=== PATIENT | female | born 1955 | race Caucasian/White ===

== ENCOUNTER 2024-09-09 02:27 | Emergency (ER) | payer MEDICARE, SELFPAY ==
[2024-09-09 02:32] VITALS: BP 103/75; PULSE 74; RESP 16; O2SAT 90; BMI 48.8
--- OUTSIDE RECORDS SUMMARY | 2024-09-09 02:49 | XMS_ITS | Encounter Summary ---
Author Organization [facility] Address [address] [place] [address] Care Team Providers Care Sausage Mixer Name Role Phone Gamal Larson MD Primary Care Provider [phone] Janine Wolff MD Primary Care Provider Reason for Referral * Home Care Services (Urgent) - Closed Specialty Diagnoses / Procedures Referred By Contac t Referred To Contact Home Health Services Diagnoses Bilateral low back pain, unspecified chronicity, unspecified whether sciatica present S/P lumbar fusion Impaired mobility Procedures OFFICE OR OTHER OUTPT VISIT EST PT 20 TO 29 MINS LOW MDM LVL 3 Vish Boyd MD [address] [place] [address] Phone: tel: [facility] [address] [place] [address] Phone: tel: fax: Referral ID Status Reason Start Date Expiration Date Visits Re quested Visits Authorized [id number] Closed 06/15/2020 06/15/2021 99 99 Question Answer Patient Preference [place] - [facility] [2] Home care service needed Home Health [1] Select home health services needed Physical therapy Physical therapy needs Eval and Treat Provider to follow patients home care VISH BOYD [[id number]] Reason for home bound status (please select all that apply) High risk for infection, Other, Requires aid of supportive device(s) Supportive device(s) needed Other Other supportive device(s) needed BRACE Reason for infection risk Post-surgical procedure Other reason for homebound status UNABLE TO DRIVE , TAKING NARCOTIC MEDICATION Has a face to face encounter been completed? Yes Face to Face encounter completed on 06/09/2020 Certification of Face to Face I certify this patient had a Face to Face encounter performed on the date specified above by a physician or Medicare allowed non-physician practitioner, related to the primary reason the patient requires home health services. Certification of Home Bound Status I certify, based on my clinical findings, this patient is confined to his/her home due to the homebound reason(s) identified. Leaving the home is a significant and challenging effort for the patient. Encounter Details Date Type Department Care Team (Latest Contact Info) Description 06/15/2020 Transcribe Orders [facility] [address] [address] Vish Boyd MD [address] [place], [place] [address]ab[place] [address] Bilateral low back pain, unspecified chronicity, unspecified whether sciatica present (Primary Dx); S/P lumbar fusion; Impaired mobility Social History Tobacco Use Types Packs/Day Years Used Date Smoking Tobacco: Former Smokeless Tobacco: Never Alcohol Use Standard Drinks/Week Comments Yes 0 (1 standard drink = 0.6 oz pur e alcohol) PHQ-2 Answer Date Recorded PHQ-2 Score 0 03/01/2020 Exercise Vital Sign Answer Date Recorde d On average, how many days pe r week do you engage in moderate to strenuous exercise (like a brisk walk)? 0 days 03/01/2020 On average, how many minutes do you engage in exercise at this level? 0 min 03/01/2020 Stress Answer Date Recorded How Stressed Not on file 06/17/2020 Inadequate Housing Answer Date Recorded Social Determinants: Housing (Overall Score Help er) 0 02/28/2019 Sexually Active Control Partners Comments Yes Comments Unknown Sex and Gender Information Value Date Recorded Sex Assigned at Female 02/20/2020 9:37 AM IT OPERATIONS ANALYST Legal Sex Female 1:17 PM IT OPERATIONS ANALYST Gender Identity Female 02/20/2020 9:37 AM IT OPERATIONS ANALYST Sexual Orientation Choose not to disclose 2019 9:37 AM IT OPERATIONS ANALYST documented as of this encounter Plan of Treatment Scheduled Referrals Name Type Priority Associated Diagnoses Orde r Schedule SERVICE TO HOME CARE OR HOSPICE Referral Routine Bilateral low back pain, unspecified chronicity, unspecified whether sciatica present S/P lumbar fusion Impaired mobility Ordered: 06/15/2020 documented as of this encounter Visit Diagnoses Diagnosis Bilateral low back pain, unspecified chronicity, unspecified whether sciatica present- Primary S/P lumbar fusion Arthrodesis status Impaired mobility Other ill-defined conditions documented in this encounter Additional Health Concerns Assessment Noted Time PHQ-9 Depression Total Score: 4 03/01/20 20 11:21 AM IT OPERATIONS ANALYST documented as of this encounter Care Teams Sausage Mixer Relationship Specialty Start Date End Date Gamal Larson MD PCP - General Family Practice 03/01/20 11/23/20 Janine Wolff MD PCP - General 11/24/20 documented as of this encounter
--- OUTSIDE RECORDS SUMMARY | 2024-09-09 02:49 | XMS_ITS | Clinical Summary ---
Author Organization [facility] Address [address] [place] [address] Care Team Providers Care Document Processor Name Role Phone Janine Wolff MD Primary Care Provider Allergies No known active allergies Medications * This document contains information received from the source organization and may not represent a complete record from that organization. Black Pepper-Turmeric (Turmeric Complex/Black Pepper) 3-500 MG Cap 03/01/2020 Active aspirin (ECOTRIN) 81 MG EC tablet 03/01/2020 Active calcium carbonate-vitam in D (CALTRATE+D) 600-400 MG-UNIT per tablet 02/23/2020 Active cetirizine (ZyrTEC) 10 MG tablet 03/01/2020 Active Cranberry 500 MG Tab 03/01/2020 Active Cyanocobalamin (Vitamin B-12) 2500 MCG SL Tab 03/01/2020 Act liliana cyclobenzaprine (FLEXERIL) 10 MG tablet 02/25/2020 Active Multiple Vitamins-Minera ls (Multivitamin Gummies Adult) Chew Tab 02/23/2020 Active gabapentin (NEURONTIN) 800 MG tablet Take 800 mg by mouth. 04/10/2019 Active lidocaine (LIDODERM) 5 % patch Place 1 patch onto the skin. 01/05/2020 Active Magnesium 300 MG Cap Take 1 capsule by mouth. 02/16/2018 Active simvastatin (ZOCOR) 20 MG tablet TAKE 1 TABLET EVERY EVENING BEFORE DINNER 10/01/2019 Active FERROUS FUMARATE PO Take 2 tablets by mouth daily. Active B Complex Vitamins (VITAMIN-B COMPLEX PO) Take 1 tablet by mouth daily. Active Multiple Vitamins-Minera ls (MULTIVITAMIN ADULT PO) Take 1 tablet by mouth daily. Active NON FORMULARY Take 2 tablets by mouth daily. LUTEIN EXTRACT/ZEAX ANTHIN EXT (LUTEIN-ZEAX ANTHIN ORAL) Active Ascorbic Acid (Vitamin C) 500 MG Cap Take 500 mg by mouth daily. Active Cholecalciferol (Vitamin D3) 50 mcg (2,000 units) capsule Take 2,000 Units by mouth. 01/02/2013 Active fluoxetine (PROzac) 40 MG capsule Take 40 mg by mouth. 10/01/2019 Active naproxen sodium (ALEVE) 220 MG tablet Take 440 mg by mouth nightly as needed. Active zolpidem (AMBIEN) 10 MG tablet Take 1 tablet by mouth nightly as needed for Sleep. 30 tablet 2 03/01/2020 Active HYDROcodone-anna marie taminophen (NORCO) 10-325 MG per tablet Take 1 tablet by mouth every 4 hours as needed for Pain. 06/03/2020 Active cephalexin 500 MG tablet Take 500 tablets by mouth 2 times daily. 06/13/2020 Active Active Problems Problem Noted Date Diagnosed Date AAT (nromm-2-qpthlpfqpad) deficiency (CMD) 03/01 Hyperlipidemia 03/01/2020 Obesity 03/01/2020 Obstructive sleep apnea syndrome, moderate 03/01 Anxiety 03/01/2020 Allergic rhinitis 03/01/2020 Overview (03/01/2020): Diagnosis die finisher utility for ICD-10 conversion FEDERICO on CPAP 03/01/2020 Insomnia 02/23/2020 Degenerative lumbar disc 12/30/2019 Overview (03/01/2020): Added automatically from request for surgery [id number] Lumbar disc herniation 12/30/2019 Overview (03/01/2020): Added automatically from request for surgery [id number] Cervical stenosis (uterine cervix) 10/14/2019 Difficult airway 10/14/2019 Stenosis of intervertebral foramina 09/11/2019 Overview (03/01/2020): Added automatically from request for surgery [id number] Added automatically from request for surgery [id number] SOLANGE (generalized anxiety disorder) 12/27/2018 Degenerative scoliosis in adult patient 08/16/19 18 Overview (03/01/2020): Added automatically from request for surgery [id number] Osteoarthritis of spine with radiculopathy, lumb ar region 08/15/2017 Overview (03/01/2020): Added automatically from request for surgery [id number] FHx: alpha 1 antitrypsin deficiency 09/12/2016 Epilepsy, partial (CMS/HCC), 201408/31/2016 Complex partial seizure (CMD) 12/26/2014 Iron deficiency 01/18/2010 Status post gastric bypass for obesity 0 Lumbar radiculopathy, chronic 10/04/2007 Unilateral deafness, left 05/03/2006 Immunizations Immunization Administration Dates Next Due School Yourself 12Y+ (Requires Dilution) 12/28/2020 ,04/13/2020,02/23/2020 Hep B, Unspecified Formulation 12/19/2007,2007,06/20/2007 Hep B, adult 12/19/2007,07/19/2007,06/20/2007 Influenza, split 11/20/2012, 2,11/29/2010,2007 Influenza, split virus, quad rivalent, PF 11/24/2020,12/17/2019,12/16/2019,2018,12/18/2016,11/30/2015,12/19/2014,0 11/14/2013 Influenza, split virus, trivalent 11/14/2013 Influenza, unspecified formulation 12/28,12/18/2017,12/18/2016,2015,12/19/2014,11/14/2013 Td (adult), 5 Lf tetanus tox oid, preserve free, adsorbed 10/28/2019 Tdap 03/05/2009 Zoster recombinant 03/01/2020,10/28/2019 Surgical History Surgery Date Site/Laterality Comments AMANUEL EN Y GASTROJEJUNOSTOMY Medical History Medical History Date Comments History of Amanuel-en-Y gastric bypass Family History Medical History Relation Comments COPD Father alpha 1 antitryp sin def Relation Status Comments Father Social History Tobacco Use Types Packs/Day Years [...] Sex Assigned at Female 02/20/2020 9:37 AM RN ENTEROSTOMAL Legal Sex Female 1:17 PM RN ENTEROSTOMAL Gender Identity Female 02/20/2020 9:37 AM RN ENTEROSTOMAL Sexual Orientation Choose not to disclose 2019 9:37 AM RN ENTEROSTOMAL Obstetrics History Last Filed Vital Signs Vital Sign Reading Time Taken Comments Blood Pressure 106/69 07/07/2020 2:45 AM CDT Pulse 84 07/07/2020 2:45 AM CDT Temperature 36.8 C (98.3 F) 11/24/2020 11:34 AM CDT Respiratory Rate 18 07/07/2020 2:45 AM CDT Oxygen Saturation 97% 07/07/2020 2:45 AM CDT Inhaled Oxygen Concentration - - Weight 104.3 kg (230 lb) 03/01/2020 11:23 AM RN ENTEROSTOMAL Height 154.9 cm (5' 1 ) 03/01/2020 11:23 AM RN ENTEROSTOMAL Body Mass Index 43.46 03/01/2020 11:23 AM RN ENTEROSTOMAL Plan of Treatment Health Maintenance Due Date Last Done Comments Depression Screening 1968 CT Colonography 2001 Cologuard 2001 Fecal Occult Blood 2001 Sigmoidoscopy 2001 Pneumococcal Vaccine 50+ (1 of 1 - PCV) 2006 COVID-19 Vaccine ( season) 2023 12/28/2020, 04/13/2020, 02/23/2020 Influenza Vaccine (#1) 2024 1, 12/17/2019, 12/16/2019, Additional history exists Colonoscopy 11/20/2024 11/20/2014 Colorectal Cancer Screening 11/20/2024 DTaP/Tdap/Td Vaccine (3 - Td or Tdap) 10/27/2029 10/28/2019, 03/05/2009 Respiratory Syncytial Virus (RSV) Vaccine 60+ (1 - 1-dose 75+ series) 10/21/2031 Hepatitis B Vaccine (For Physician/APC Discussion) Completed 12/19/2007, 12/19/2007, 07/19/2007, Additional history exists Breast Cancer Screening Discontinued 07/02/2018 Osteoporosis Screening Completed 07/03/2018 Shingles Vaccine Completed 03/01/2020, 10/28/2019 HPV Vaccine Aged Out No longer eligi ble based on patient's age to complete this topic Hepatitis A Vaccine Aged Out No longe r eligible based on patient's age to complete this topic Meningococcal Serogroup B Vaccine Aged Out No longer eligible based on patient's age to complete this topic Meningococcal Vaccine Aged Out No guerrero kaye eligible based on patient's age to complete this topic Procedures Procedure Name Priority Date/Time Associated Diagnosis Comments BD DEXA AXIAL SKELETON Routine 07/03/2018 MAMMO SCREENING BILATERAL Routine 07/02/2018 COLONOSCOPY DIAGNOSTIC Routine 11/20/2014 from Last 3 Months or Most Recently Relevant to Health Maintenance Results * BD DEXA SCAN AXIAL SKELETON (07/03/2018) [facility] DEXA SCAN Normal Comment:in my chart Anatomical Region Laterality Modality Bone Density Radiographic Corinne ging us Ext Result Console IMG DXA PROCEDURES Final Resu lt * MAMMO SCREENING BILATERAL (07/02/2018) [facility] MAMMOGRAPHY BILATERAL Normal Comment:in My chart Anatomical Region Laterality Modality Breast Bilateral Mammography us Ext Result Console IMG BI PROCEDURES Final Resul t * COLONOSCOPY DIAGNOSTIC (11/20/2014) [facility] COLONOSCOPY Normal Comment:under my chart us Ext Result Console SURGERY & PROCEDURES Final Re sult from Last 3 Months or Most Recently Relevant to Health Maintenance Care Teams Document Processor Relationship Specialty Start Date End Date Janine Wolff MD PCP - General 11/24/20
--- OUTSIDE RECORDS SUMMARY | 2024-09-09 02:49 | XMS_ITS | Encounter Summary ---
Author Organization [facility] Address [address] [place] [address] Care Team Providers Care Fund Controller Name Role Phone Janine Wolff MD Primary Care Provider Encounter Details Date Type Department Care Team ([facility] Contact Info) Description 05/19/2021 E-Advice [facility] [address] [place] [address] PAYMILL, Patient Portal Questionnaire Submission Social History Tobacco Use Types Packs/Day Years [...] Sex Assigned at Female 02/20/2020 9:37 AM FLEET MECHANIC Legal Sex Female 1:17 PM FLEET MECHANIC Gender Identity Female 02/20/2020 9:37 AM FLEET MECHANIC Sexual Orientation Choose not to disclose 2019 9:37 AM FLEET MECHANIC documented as of this encounter Plan of Treatment Not on file documented as of this encounter Visit Diagnoses Not on filedocumented in this encounter Additional Health Concerns Assessment Noted Time PHQ-9 Depression Total Score: 4 03/01/20 20 11:21 AM FLEET MECHANIC documented as of this encounter Care Teams Fund Controller Relationship Specialty Start Date End Date Janine Wolff MD PCP - General 11/24/20 documented as of this encounter
--- OUTSIDE RECORDS SUMMARY | 2024-09-09 02:49 | XMS_ITS | Encounter Summary ---
Author Organization [facility] Address [address] [place] [address] Care Team Providers Care Milk Pickup Driver Name Role Phone Gamal Larson MD Primary Care Provider [phone] Janine Wolff MD Primary Care Provider Reason for Referral * Consult & Treatment (Routine) - Closed Specialty Diagnoses / Procedures Referred By Contac t Referred To Contact Diagnoses Degenerative scoliosis in adult patient Degenerative lumbar disc Osteoarthritis of spine with radiculopathy, lumbar region Low back pain, unspecified back pain laterality, unspecified chronicity, unspecified whether sciatica present Procedures OFFICE OR OTHER OUTPT VISIT EST PT 20 TO 29 MINS LOW MDM LVL 3 Gamal Larson MD Phone: tel: fax: Onofre Rowley MD Phone: tel: fax: Referral ID Status Reason Start Date Expiration Date Visits Re quested Visits Authorized [id number] Closed 03/08/2020 03/08/2021 1 1 Question Answer service Transfer of Care Comments Chronic lower back pain. Needs new neurosurgeon. F OF STAFF DOCTOR Encounter Details Date Type Department Care Team (Late st Contact Info) Description 03/08/2020 E-Adv[facility] [address] [address] Gamal Larson MD [address] [place] [address] RE: Non-Urgent Medical Question Social History Tobacco Use Types Packs/Day Years [...] exercise at this level? 0 min 03/01/2020 Inadequate Housing Answer Date Recorded Social Determinants: Housing (Overall Score Help er) 0 02/28/2019 Sexually Active Control Partners Comments Yes Comments Unknown Sex and Gender Information Value Date Recorded Sex Assigned at Female 02/20/2020 9:37 AM CHIEF OF STAFF DOCTOR Legal Sex Female 1:17 PM CHIEF OF STAFF DOCTOR Gender Identity Female 02/20/2020 9:37 AM CHIEF OF STAFF DOCTOR Sexual Orientation Choose not to disclose 2019 9:37 AM CHIEF OF STAFF DOCTOR documented as of this encounter Miscellaneous Notes * Telephone Encounter - Gamal Larson MD - 03/08/2020 12:22 PM CSTFrom: Zaynab Arteaga To: Gamal Larson Sent: 03/08/2020 12:00 PM CHIEF OF STAFF DOCTOR Subject: Non-Urgent Medical Question We had spoken about a referral to an [facility] for my lumbar spine issues. The doctor I found and would like to see is Onofre Rowley. ThanksZaynab F OF STAFF DOCTOR documented in this encounter Plan of Treatment Scheduled Referrals Name Type Priority Associated Diagnoses Orde r Schedule SERVICE TO NEUROLOGICAL SURGERY Referral Routine Degenerative scoliosis in adult patient Degenerative lumbar disc Osteoarthritis of spine with radiculopathy, lumbar region Low back pain, unspecified back pain laterality, unspecified chronicity, unspecified whether sciatica present Ordered: 03/08/2020 documented as of this encounter Visit Diagnoses Diagnosis Low back pain, unspecified back pain laterality, unspecified chronicity, unspecified whether sciatica present- Primary Degenerative scoliosis in adult patient Degenerative lumbar disc Degeneration of lumbar or lumbosacral intervertebral disc Osteoarthritis of spine with radiculopathy, lumbar region documented in this encounter Additional Health Concerns Assessment Noted Time PHQ-9 Depression Total Score: 4 03/01/20 20 11:21 AM CHIEF OF STAFF DOCTOR documented as of this encounter Care Teams Milk Pickup Driver Relationship Specialty Start Date End Date Gamal Larson MD PCP - General Family Practice 03/01/20 11/23/20 Janine Wolff MD PCP - General 11/24/20 documented as of this encounter
--- NOTE | 2024-09-09 02:58 | CTR_ITS ---
PROCEDURE INFORMATION: Exam: CT Head Without Contrast Exam date and time: 09/09/2024 3:13 AM Age: 68 years old Clinical indication: Injury or trauma; Fall; Blunt trauma (contusions or hematomas); Without loss of consciousness TECHNIQUE: Imaging protocol: Computed tomography of the head without contrast. Radiation optimization: All CT scans at this facility use at least one of these dose optimization techniques: automated exposure control; mA and/or kV adjustment per patient size (includes targeted exams where dose is matched to clinical indication); or iterative reconstruction. COMPARISON: CT facial bones wo con* [id number] 09/09/2024 3:13 AM RADIATION DOSE METRICS: Total DLP (mGy-cm): 1339.4 FINDINGS: Brain: No acute infarction, hemorrhage, mass, or extra-axial fluid collection is identified. No midline shift. Remote lacunar infarction versus dilated perivascular space left basal ganglia. Cerebral ventricles: No hydrocephalus. Paranasal sinuses: Paranasal sinuses are grossly clear. Mastoid air cells: Mastoid air cells are grossly clear. Bones: Calvarium appears intact. Soft tissues: Frontal soft tissue swelling/hematoma. CT/CT head wo con* [id number] IMPRESSION: 1. No acute intracranial abnormality. 2. Frontal soft tissue swelling/hematoma with no underlying fracture.
--- NOTE | 2024-09-09 02:59 | XRR_ITS ---
PROCEDURE INFORMATION: Exam: XR Right Knee Exam date and time: 09/09/2024 3:00 AM Age: 68 years old Clinical indication: Injury or trauma; Fall; Blunt trauma; Knee; Right; Additional info: Fall, swelling TECHNIQUE: Imaging protocol: Radiologic exam of the right knee. Views: 1 or 2 views. COMPARISON: No relevant prior studies available. FINDINGS: Bones/joints: No acute fracture or dislocation. Tricompartmental degenerative osteoarthritis. Small effusion. Soft tissues: Soft tissue swelling anteriorly about the distal thigh and knee. XR/XR knee RT 1-2V [id number] IMPRESSION: Anterior soft tissue swelling with no acute fracture or dislocation identified.
--- NOTE | 2024-09-09 03:12 | CTR_ITS ---
PROCEDURE INFORMATION: Exam: CT Maxillofacial Without Contrast Exam date and time: 09/09/2024 3:13 AM Age: 68 years old Clinical indication: Injury or trauma; Fall; Blunt trauma (contusions or hematomas); Head/scalp and lip/oral cavity; Without loss of consciousness; Not specified; Additional info: Fall, facial lac TECHNIQUE: Imaging protocol: Computed tomography of the face without contrast. Radiation optimization: All CT scans at this facility use at least one of these dose optimization techniques: automated exposure control; mA and/or kV adjustment per patient size (includes targeted exams where dose is matched to clinical indication); or iterative reconstruction. COMPARISON: CT head wo con* [id number] 09/09/2024 3:13 AM RADIATION DOSE METRICS: Total DLP (mGy-cm): 674.8 FINDINGS: Paranasal sinuses: No air-fluid levels. Orbital cavities: Orbits are normal. Globes are unremarkable. Bones: No acute fracture. Soft tissues: Frontal soft tissue swelling/hematoma. CT/CT facial bones wo con* [id number] IMPRESSION: Frontal soft tissue swelling/hematoma with no maxillofacial fracture identified.
--- NOTE | 2024-09-09 03:34 | XRR_ITS ---
PROCEDURE INFORMATION: Exam: XR Chest Exam date and time: 09/09/2024 3:52 AM Age: 68 years old Clinical indication: Injury or trauma; Fall; Bleeding/hemorrhage; Left rib pain; Additional info: Rib pain / fall TECHNIQUE: Imaging protocol: Radiologic exam of the chest. Views: 1 view. COMPARISON: No relevant prior studies available. FINDINGS: Lungs: Mild central vascular congestion is suggested. Questionable minimal left basilar airspace disease, atelectasis versus subtle infiltrate. Pleural spaces: No significant pleural effusion is observed. No pneumothorax. Heart/Mediastinum: Heart size top-normal. Bones/joints: No displaced rib fracture is apparent. XR/XR chest 1V portable [id number] IMPRESSION: No acute findings.
--- NOTE | 2024-09-09 03:34 | W.ED.WOUNDLC ---
HPI - Wound/Laceration General: Chief Complaint: Wound/Laceration Stated Complaint: FALL Time Seen by Provider: 09/09/24 03:21 History of Present Illness: Patient presents following a fall onto cement, resulting in a head laceration. Patient denies loss of consciousness. 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 Patient complains of rib pain. Patient appears to be under the influence of alcohol at the time of examination, though patient states I'm actually pretty sober right now. Patient is uncertain about tetanus vaccination status, stating I don't remember, actually when asked about the date of last tetanus shot. Patient reports having documentation in [employer] ([place] but does not have access to phone at present. Related Data Home Medications ?Medication ?Instructions ?Recorded ?Confirmed gabapentin 800 mg tablet mg 09/09/24 mirtazapine 30 mg tablet mg 09/09/24 simvastatin 20 mg tablet mg 09/09/24 09/09/24 venlafaxine 75 mg tablet mg 09/09/24 09/09/24 Allergies Allergy/AdvReac Type Severity Reaction Status Date / Time No Known Allergies Allergy Verified 09/09/24 02:55 Review of Systems General: Reports: 10 or more systems reviewed and unremarkable except in HPI and below Physical Exam Const: COMMON NORMALS: no acute distress, patient oriented x3, alert and well nourished Neck/C-Spine: COMMON NORMALS: no JVD Resp: COMMON NORMALS: normal respiratory effort, No retractions, No use of accessory muscles, clear to auscultation bilaterally and percussion normal AUSCULTATION: clear to auscultation bilaterally PERCUSSION: percussion normal Cardio: COMMON NORMALS: no JVD GI: COMMON NORMALS: Normal to inspection, nondistended, normoactive bowel sounds present, Soft to palpation, non-tender, No hepatosplenomegaly present, no masses and no bruits PALPATION: Yes Soft to palpation and Yes No hepatosplenomegaly present Extremity: COMMON NORMALS: normal to inspection, full ROM, capillary refill normal, no joint enlargement, no clubbing, cyanosis or edema, no calf tenderness and no pedal edema Neuro: COMMON NORMALS: patient oriented x3 SENSORIUM/ORIENTATION: Yes alert Skin: COMMON NORMALS: no rashes or lesions noted, turgor normal and no jaundice NARRATIVE SKIN EXAM: 7.5 cm laceration to the middle of the forehead with underlying hematoma of moderate size GENERAL SKIN EXAM: no rashes or lesions noted and turgor normal Course Vital Signs: Vital signs: Vital Signs Pulse Rate 75 09/09/24 04:00 Respiratory Rate 16 09/09/24 04:00 Blood Pressure 92/63 09/09/24 04:00 Pulse Oximetry 91 09/09/24 04:00 Oxygen Delivery Me thod Room Air 09/09/24 04:00 MDM - Wound/Laceration Medical Decision Making 1. Head Laceration with Hematoma - Significant laceration requiring repair - Plan to delay repair until patient is more sober - Will likely require sedation for proper cleaning and closure - Awaiting CT scan results to rule out intracranial injury 2. Possible Rib Injury - X-ray ordered to evaluate for fractures - Will reassess after imaging 3. Tetanus Prophylaxis - Tetanus vaccination status uncertain - Will administer tetanus toxoid as prophylaxis 4. Alcohol Intoxication - Will monitor and allow time for sobriety before procedural intervention - Caution with sedation due to current intoxication Lab Data 09/09/24 04:28 09/09/24 04:[address] 09/09/24 02:58 IMPRESSION: 1. No acute intracranial abnormality. 2. Frontal soft tissue swelling/hematoma with no underlying fracture. Knee X-Ray 09/09/24 02:59 IMPRESSION: Anterior soft tissue swelling with no acute fracture or dislocation identified. Face CT 09/09/24 03:12 IMPRESSION: Frontal soft tissue swelling/hematoma with no maxillofacial fracture identified. Chest X-Ray 09/09/24 03:34 IMPRESSION: No acute findings. Laboratory Results WBC 8.23 10^3/uL (3.29-11.43) 09/09/24 04:28 RBC 4.64 10^6/uL (3.85-5.65) 09/09/24 04:28 Hgb 14.30 g/dL (11.27-16.99) 09/09/24 04:28 Hct 43.7 % (36-47) 09/09/24 04:28 MCV 94.2 fl (85-98) 09/09/24 04:28 MCH 30.8 pg (27-33) 09/09/24 04:28 MCHC 32.7 g/dL (30-55) 09/09/24 04:28 RDW 13.2 % (12.1-15.1) 09/09/24 04:28 Plt Count 238 10^3/cmm (157-399) 09/09/24 04:28 MPV 10.3 fL (7.4-10.4) 09/09/24 04:28 Neut % (Auto) 77.3 % 09/09/24 04:28 Lymph % (Auto) 13.1 % 09/09/24 04:28 [place] % (Auto) 7.3 % 09/09/24 04:28 Eos % (Auto) 1.0 % 09/09/24 04:28 Baso % (Auto) 0.9 % 09/09/24 04:28 Neut # (Auto) 6.37 10^3/uL (1.8-7.7) 09/09/24 04:28 Lymph # (Auto) 1.1 10^3/uL (0.8-4.8) 09/09/24 04:28 [place] # (Auto) 0.6 10^3/uL (0.2-0.9) 09/09/24 04:28 Eos # (Auto) 0.1 10^3/uL (0.0-0.8) 09/09/24 04:28 Baso # (Auto) 0.1 10^3/uL (0.0-0.1) 09/09/24 04:28 Nucleated RBC % (auto) 0 % 09/09/24 04:28 Nucleated RBCs # 0.0 /100WBC 09/09/24 04:28 Sodium 141 mmol/L (136-145) 09/09/24 04:28 Potassium 3.6 mmol/L (3.5-5.1) 09/09/24 04:28 Chloride 104 mmol/L (98-107) 09/09/24 04:28 Carbon Dioxide 21 mmol/L (22-29) L 09/09/24 04:28 Anion Gap 19.6 (5-19) H 09/09/24 04:28 BUN 15 mg/dL (8-23) 09/09/24 04:28 Creatinine 0.4 mg/dL (0.5-0.9) L 09/09/24 04:28 GFR Calculation 159.2 mL/min (90-130) H 09/09/24 04:28 Glucose 119 mg/dL (65-115) H 09/09/24 04:28 Calculated Osmolality 294 mOsm/kg (285-295) 09/09/24 04:28 Calcium 8.9 mg/dL (8.5-10.5) 09/09/24 04:28 Total Bilirubin 0.4 mg/dL (0.15-1.2) 09/09/24 04:28 AST 38 U/L (0-32) H 09/09/24 04:28 ALT 32 U/L (0-33) 09/09/24 04:28 Alkaline Phosphatase 90 U/L (35-105) 09/09/24 04:28 Total Protein 7.1 g/dL (6.6-8.7) 09/09/24 04:28 Albumin 3.9 g/dL (3.5-5.2) 09/09/24 04:28 Globulin 3.2 g/dL (1.3-4.6) 09/09/24 04:28 Ethyl Alcohol 134 mg/dL (0-10) H 09/09/24 04:28 All radiology interpretation(s) finalized by discharge ED provider radiology interpretation(s): Multiple studies performed without any significant acute findings. Other Data Patient had 7 single interrupted 4-0 nylon sutures to repair her laceration down her forehead that was large and gaping and had an underlying hematoma that had to be evacuated. She was given some ketamine for anxiolysis that assisted in her being able to tolerate this painful hematoma evacuation and laceration repair. The patient overall did well we had to put a pressure dressing on this she will need close follow-up she has scattered ecchymoses over her face as well as her knees. The patient will be continued to be observed in the emergency department for the next 1 to 2 hours and have recheck and make sure that she is clinically sober and has no ongoing concerns prior to discharge. The patient's been in the department for quite some time all we have been doing her evaluation. Tetanus shot was updated. Wound was explored in a bloodless field after evacuation of the hematoma. There was no concerns of foreign body. It did come together nicely with repair but I expect that she may have significant scar she will need the sutures out in 5 days. Discharge Plan Discharge Patient Disposition: Home Clinical Impression: Laceration, Closed head injury, Contusion of rib, Alcohol intoxication, Multiple bruises Condition: Stable Prescriptions: No Action gabapentin 800 mg tablet mirtazapine 30 mg tablet simvastatin 20 mg tablet venlafaxine 75 mg tablet Discharge Orders: Discharge ED (Routine); Ordered 09/09/24 Ordered By: Natan Caro Discharge Diet: Advance as tolerated Discharge Activity: Resume usual activity Patient Instructions: Opioid Safety, Pain Management, Patient Portal & Anthony Instructions Activity Restrictions/Additional Instructions: 1. Ibuprofen and/or Tylenol for pain. Apply ice on and off today. 2. Rest fluids and recheck with primary care in 48 to 72 hours. 3. Sutures out in 5 days. 4. Return to the emergency department for concerns of new or worsening symptoms. Print Language: [place] Coding Level of Care Code ED Front Desk Person for Erik Mcconnell
[2024-09-09 04:00] VITALS: BP 92/63; PULSE 75; RESP 16; O2SAT 91
[2024-09-09 04:32] LABS: Hematocrit 43.7 % (36-47); Hemoglobin 14.30 g/dL (11.27-16.99); Mean Corpuscular HGB Conc 32.7 g/dL (30-55); Mean Corpuscular Hemoglobin 30.8 pg (27-33); Mean Corpuscular Volume 94.2 fl (85-98); Nucleated Red Blood Cells % 0 %; Platelet Count 238 10^3/cmm (157-399); Red Blood Count 4.64 10^6/uL (3.85-5.65); White Blood Count 8.23 10^3/uL (3.29-11.43)
[2024-09-09 04:48] LABS: Alanine Aminotransferase 32 U/L (0-33); Albumin Level 3.9 g/dL (3.5-5.2); Alcohol Level 134 mg/dL (0-10); Alkaline Phosphatase 90 U/L (35-105); Anion Gap 19.6 (5-19); Aspartate Amino Transferase 38 U/L (0-32); Blood Urea Nitrogen 15 mg/dL (8-23); Calcium 8.9 mg/dL (8.5-10.5); Carbon Dioxide 21 mmol/L (22-29); Chloride 104 mmol/L (98-107); Creatinine Clr Calc Pharmacy 78.2726; Globulin 3.2 g/dL (1.3-4.6); Glucose 119 mg/dL (65-115); Osmolality Calculated 294 mOsm/kg (285-295); Potassium 3.6 mmol/L (3.5-5.1); Sodium 141 mmol/L (136-145); Total Protein 7.1 g/dL (6.6-8.7)
[2024-09-09] MEDS: tetanus-dipt-pertussis 0.5 mL SDV IM (05:03)
[2024-09-09 06:00] VITALS: BP 122/80; PULSE 73; RESP 16; O2SAT 99
[2024-09-09] MEDS: ketamine 100 mg/mL Inj 5 mL 150 MG IVP (06:00)
--- NOTE | 2024-09-09 06:37 | PC.NURSE ---
pt became over sedated with ketamine 50 mg per IV pt was briefly placed on BVM and sutures were placed by MD at 0635 pt was back to baseline and talking very animatedly. will monitor further.
[2024-09-09 07:24] VITALS: BP 122/80; PULSE 74; O2SAT 100
== END 2024-09-09 07:25 | disposition home or self-care (01) ==
PROVIDERS: Emergency Provider Family Medicine
DX: S09.8XXA Other specified injuries of head, initial encounter (principal); S20.20XA Contusion of thorax, unspecified, initial encounter; F10.129 Alcohol abuse with intoxication, unspecified; Y90.6 Blood alcohol level of 120-199 mg/100 ml; S01.81XA Laceration without foreign body of other part of head, initial encounter; W19.XXXA Unspecified fall, initial encounter
CPT/HCPCS: 36415; 70450; 70486; 71045; 73560; 80053; 80307; 85025; 90471; 90715; 99285; J3490; J9999